=== PATIENT | female | born 1985 | race Caucasian/White ===

== ENCOUNTER 2024-11-28 13:15 | Emergency (ER) | payer OTHER ==
[~2024-11-28] VITALS: Ht 160 cm; Wt 56.6 kg
[2024-11-28] MEDS ORDERED: MORPHINE SULFATE 4 MG/ML VIAL IV ONE (13:25)
[2024-11-28] MEDS ORDERED: Diph, Acellular Pertussis, Tet 0.5 ML/VIAL (Tdap) SDV IM ONE (13:25)
[2024-11-28] MEDS ORDERED: ceFAZolin Sodium 1 GM in SODIUM CHLORIDE 0.9% 50 ML IV ONE (13:25)
[2024-11-28] MEDS ORDERED: ONDANSETRON HCl 4 MG/2 ML SDV IV ONE (13:30)
[2024-11-28] MEDS ORDERED: LIDOcaine HCl 1% (Local Anesth.) 20 ML VIAL STI ONE (13:30)
[2024-11-28] MEDS ORDERED: HYDROmorphone HCL 2 MG/AMP IV ONE (14:55)
[2024-11-28 15:22] VITALS: BP 123/87
== END 2024-11-28 15:20 ==
LOC: ED 13:15
DX: S66.323A Laceration of extensor muscle, fascia and tendon of left middle finger at wrist and hand level, initial encounter (principal); S62.633A Displaced fracture of distal phalanx of left middle finger, initial encounter for closed fracture; W29.3XXA Contact with powered garden and outdoor hand tools and machinery, initial encounter; Y93.H9 Activity, other involving exterior property and land maintenance, building and construction; Y92.007 Garden or yard of unspecified non-institutional (private) residence as the place of occurrence of the external cause
CPT/HCPCS: 90715; J0690; J1171; J2405